=== PATIENT | male | born 1965 | race Caucasian/White ===

== ENCOUNTER 2017-11-23 13:52 | Emergency (ER) | payer BC ==
--- NOTE | 2017-11-23 14:42 | ED Physician Documentation ---
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 He can walk on the heel and the lateral foot without pain but if he bears full weight on the foot medially he has a lot of pain. He has no pain at rest.) Review of Systems Constitutional: denies: Fever, Chills Cardiac: denies: Chest pain / pressure, Palpitations Respiratory: denies: Dyspnea, Cough PD PAST MEDICAL HISTORY - Past Medical History Past Medical History: Yes Cardiovascular: High cholesterol GI: Diverticulitis Derm: Herpes zoster - Past Surgical History Past Surgical History: Yes General: Cholecystectomy Ortho: Arthroscopic surgery HEENT: Tonsil/Adenoidectomy - Present Medications Home Medications: Ambulatory Orders Medication Instructions Recorded Confirmed Atorvastatin [Lipitor] 10 mg 11/23/17 Meloxicam [Mobic] 7.5 mg PO BIDWM PRN #15 tablet 11/23/17 Valacyclovir HCl [Valacyclovir] 500 mg 11/23/17 - Allergies Allergies/Adverse Reactions: Allergies Allergy/AdvReac Type Severity Reaction Status Date / Time No Known Drug Allergies Allergy Verified 11/23/17 14:08 - Social History Does the pt smoke?: No Smoking Status: Never smoker Does the pt drink ETOH?: Yes Does the pt have substance abuse?: No - Immunizations Immunizations are current?: Yes PD ED PE NORMAL - Vitals Vital signs reviewed: Yes - General General: Alert and oriented X 3, No acute distress - Extremities Extremities: Other (Right foot: There is no overt deformity or redness or swelling anywhere. There is nothing consistent with podagra. The Achilles is nontender as is the calcaneus. If I am able to elicit any tenderness it is near proximal first metatarsal, but it is very mild and there is no motion I can do to re-create the pain. Plantar fascia is nontender.) - Neuro Neuro: Alert and oriented X 3, Normal speech Results - Vitals Vitals: Vital Signs - 24 hr 11/23/17 14:04 Temperature 36.5 C Heart Rate 78 Respiratory 18 Rate Blood Pressure 137/75 H O2 Saturation 98 Oxygen O2 Source Room air - Rads (name of study) R foot 3v XR Radiology: EMP read contemporaneously (Minimal first MTP osteoarthritis without other acute changes.) PD MEDICAL DECISION MAKING - ED course ED course: Seems most consistent with a tendinitis of the foot. It is hard to reproduce on exam. There is nothing to suggest infection or gout. - Sepsis Event Vital Signs: Vital Signs - 24 hr 11/23/17 14:04 Temperature 36.5 C Heart Rate 78 Respiratory 18 Rate Blood Pressure 137/75 H O2 Saturation 98 Oxygen O2 Source Room air Departure - Departure Disposition: Home, Self Care Clinical Impression: Pain of lower extremity Qualifiers: Laterality: right Qualified Code(s): M79.604 - Pain in right leg Condition: Good Record reviewed to determine appropriate education?: Yes Instructions: Tendonitis and Tenosynovitis Prescriptions: Meloxicam [Mobic] 7.5 mg PO BIDWM PRN #15 tablet PRN Reason: Pain Comments: Follow-up with your physician in 1 week if problem has not resolved itself. Your blood pressure was elevated today on check into the emergency department. This does not mean that you have hypertension, it is a common phenomenon to come to the emergency department and have elevated blood pressure. I recommend that you see your primary care physician within the week to have it rechecked when you are feeling better.
--- NOTE | 2017-11-23 15:48 | XRAY Report ---
Procedure Date: 11/23/2017 Accession Number: [id number] / [id number] Procedure: XR - Foot 3 View RT CPT Code: FULL RESULT: EXAM: RIGHT FOOT RADIOGRAPHY EXAM DATE: 11/23/2017 02:50 PM. CLINICAL HISTORY: Pain to top of foot. COMPARISON: None. TECHNIQUE: 3 views. FINDINGS: Bones: No evidence of fracture. Minimal Achilles and plantar heel spurs. Joints: Minimal osteophytes at the first metatarsophalangeal joint. Soft Tissues: Normal. No soft tissue swelling. IMPRESSION: No evidence of fracture or dislocation. Minimal osteoarthritis first metatarsophalangeal joint. [facility]
[2017-11-23 16:13] VITALS: BP 135/83
== END 2017-11-23 16:12 | disposition home or self-care (01) ==
LOC: ED 13:52
DX: M79.604 Pain in right leg (principal)
CPT/HCPCS: 99283